=== PATIENT | female | born 1990 | race Two or more races ===

== ENCOUNTER 2020-06-18 09:50 | Observation (INO) | payer MEDICAID ==
[~2020-06-18] VITALS: Ht 160 cm; Wt 83.9 kg
[2020-06-28] MEDS ORDERED: PNV1TABL76 PO (16:37)
[2020-06-28] MEDS ORDERED: FERR325T6 PO (16:38)
[2020-06-28] MEDS ORDERED: ONDANSETRON HCL 4MG/2ML INJ IV PRN (16:45)
[2020-06-28] MEDS: DEXT 5%/LACTATED RINGERS 1,000 ML IV SCH ×2 (17:04→18:00)
[2020-06-28 17:48] LABS: CLARITY URINE TURBID (CLEAR); COLOR URINE DARK YELLOW (YELLOW); KETONES URINE 2+ (NEGATIVE); LEUKOCYTE ESTERASE URINE 3+ (NEGATIVE); NITRITE URINE NEGATIVE (NEGATIVE); OCCULT BLOOD URINE 2+ (NEGATIVE); PH URINE 6.5 (4.5-8.0); PROTEIN URINE 1+ (NEGATIVE); SPECIFIC GRAVITY URINE 1.014 (1.005-1.030)
[2020-06-28] MEDS ORDERED: CEFAZOLIN 2,000 MG in DEXT 5% WATER 100 ML IV NR (19:00)
== END 2020-06-28 19:50 | disposition home or self-care (01) ==
LOC: 8 EST LDRP 06-28 15:59
PROVIDERS: ADMIT Obstetrics & Gynecology; ATTEND Obstetrics & Gynecology
DX: O62.9 Abnormality of forces of labor, unspecified (principal); Z3A.38 38 weeks gestation of pregnancy
CPT/HCPCS: 59025; 76805; 76818; 81003; 87086; 96365; 96375; G0378; J0690; J2405; J7060; 96360; 99281

== ENCOUNTER 2020-06-29 06:17 | Inpatient (IN) | payer MEDICAID ==
[~2020-06-29] VITALS: Ht 152.4 cm; Wt 83.9 kg
[~2020-06-29 06:17] MED LIST: FERR325T6 PO; PNV1TABL76 PO
[2020-06-29] MEDS ORDERED: ONDANSETRON HCL 4MG/2ML INJ IM SCH (07:30)
[2020-06-29] MEDS: LACTATED RINGERS 1,000 ML IV SCH ×3 (07:40→16:09)
[2020-06-29 08:19] LABS: BASOPHILS % 0.5 % (0.0-2.0); HEMATOCRIT. 30.6 % (36.0-48.0); HEMOGLOBIN. 9.5 g/dL (12.0-16.0); LYMPHOCYTES % 10.2 % (20.0-50.0); MEAN CORPUSCULAR HEMOGLOBIN 21.7 pg (28.0-32.0); MEAN CORPUSCULAR VOLUME 69.8 fL (81.0-99.0); MEAN PLATELET VOLUME 8.6 fl (7.4-10.4); MONOCYTES % 7.3 % (2.0-8.0); PLATELET 344 x1000/uL (130-400); RED BLOOD CELL COUNT 4.38 mill/uL (4.2-5.4); RED CELL DISTRIBUTION WIDTH 19.6 % (11.6-14.6)
[2020-06-29 08:27] LABS: CHLORIDE 107 mEq/L (98-107)
[2020-06-29] MEDS ORDERED: LIDOCAINE HCL 1% 20ML VIAL (Pyxis) INJ INFIL PRN (09:15)
[2020-06-29] MEDS ORDERED: DEXT 5%/LR + PITOCIN 20UNITS/L 1,000 ML IV PRN (09:15)
[2020-06-29] MEDS ORDERED: NALOXONE HCL 0.4 MG/ML 1ML VIAL IM PRN (09:15)
[2020-06-29] MEDS ORDERED: METHYLERGONOVINE MALEATE 0.2 MG/ML IM PRN (09:15)
[2020-06-29] MEDS ORDERED: MISOPROSTOL 100MCG TABLET VG PRN (09:15)
[2020-06-29] MEDS ORDERED: CARBOPROST TROMETHAMINE 250 MCG/ML AMPUL IM PRN (09:15)
[2020-06-29] MEDS ORDERED: BUTORPHANOL TARTRATE 2 MG/ML VIAL IV PRN (09:15)
[2020-06-29] MEDS ORDERED: AMPICILLIN 2,000 MG in SODIUM CHLORIDE 0.9% 100 ML IV SCH (09:30)
[2020-06-29] MEDS ORDERED: DIPHENHYDRAMINE 50MG/ML VIAL IM PRN (09:45)
[2020-06-29] MEDS ORDERED: ROPIVACAINE HCL/PF EPIDURAL 200 ML EPI SCH (09:45)
[2020-06-29 10:02] LABS: INR 0.9; PARTIAL THROMBOPLASTIN TIME 28.7 sec (23.4-31.0); PROTHROMBIN TIME 9.8 sec (9.6-11.0)
[2020-06-29 10:15] LABS: OPIATES URINE SCREEN NEGATIVE (NEGATIVE)
[2020-06-29 10:16] LABS: *AMPHETAMINES SCREEN URINE NEGATIVE (NEGATIVE); *BARBITURATES SCREEN URINE NEGATIVE (NEGATIVE); *BENZODIAZEPINES SCREEN URINE NEGATIVE (NEGATIVE); *COCAINE SCREEN URINE NEGATIVE (NEGATIVE); CANNABINOID URINE SCREEN NEGATIVE (NEGATIVE); CLARITY URINE CLOUDY (CLEAR); COLOR URINE DARK YELLOW (YELLOW); KETONES URINE 2+ (NEGATIVE); LEUKOCYTE ESTERASE URINE 3+ (NEGATIVE); METHADONE URINE SCREEN NEGATIVE (NEGATIVE); NITRITE URINE NEGATIVE (NEGATIVE); OCCULT BLOOD URINE 2+ (NEGATIVE); PH URINE 6.5 (4.5-8.0); PHENCYCLIDINE URINE SCREEN NEGATIVE (NEGATIVE); PROTEIN URINE TRACE (NEGATIVE); SPECIFIC GRAVITY URINE 1.014 (1.005-1.030)
[2020-06-29] MEDS: MISOPROSTOL 100MCG TABLET VG PRN ×2 (11:00→17:17)
[2020-06-29 12:29] LABS: PLATELET ESTIMATE NORMAL
[2020-06-29 13:01] LABS: HEPATITIS B SURFACE ANTIGEN NEGATIVE
[2020-06-29 13:36] LABS: HEPATITIS B SURFACE ANTIGEN NEGATIVE
[2020-06-29 14:05] LABS: HEPATITIS A AB IGM NEGATIVE (NEGATIVE)
[2020-06-29] MEDS: AMPICILLIN 1,000 MG in SODIUM CHLORIDE 0.9% 50 ML IV SCH ×2 (17:17→23:20)
[2020-06-29] MEDS ORDERED: MAGNESIUM 4 G PREMIX 100 ML IV STA (17:28)
[2020-06-29] MEDS: MAGNESIUM 20 G PREMIX (L & D) 500 ML IV SCH (18:10)
[2020-06-29] MEDS: DEXT 5%/LACTATED RINGERS 1,000 ML IV SCH ×2 (18:26→22:47)
[2020-06-30] MEDS: DEXT 5%/LR + PITOCIN 20UNITS/L 1,000 ML IV SCH ×2 (00:18→08:04)
[2020-06-30] MEDS: LABETALOL HCL 200MG TABLET PO SCH ×2 (00:30→12:28)
[2020-06-30] MEDS: ONDANSETRON HCL 4MG/2ML INJ IV PRN ×3 (00:31→11:37)
[2020-06-30] MEDS ORDERED: ROPIVACAINE HCL/PF EPIDURAL 200 ML EPI ONE (01:09)
[2020-06-30] MEDS ORDERED: ROPIVACAINE HCL/PF EPIDURAL 200 ML EPI SCH (01:15)
[2020-06-30] MEDS ORDERED: BUPIVACAINE HCL/PF 0.25% (2.5MG/ML) 10ML ONE (02:51)
[2020-06-30] MEDS: AMPICILLIN 1,000 MG in SODIUM CHLORIDE 0.9% 50 ML IV SCH (05:21)
[2020-06-30] MEDS: LACTATED RINGERS 1,000 ML IV SCH (05:21)
[2020-06-30] MEDS ORDERED: CITRIC ACID/SODIUM CITRATE SOLN 30ML UDC PO STA (05:37)
[2020-06-30] MEDS ORDERED: CITRIC ACID/SODIUM CITRATE SOLN 30ML UDC PO SCH (06:45)
[2020-06-30] MEDS ORDERED: SODIUM BICARBONATE 8.4% MEQ/ML 50ML VIAL IV ONE (06:52)
[2020-06-30] MEDS ORDERED: FENTANYL CITRATE/PF 50MCG/ML 2ML VIAL ONE (06:58)
[2020-06-30] MEDS ORDERED: ONDANSETRON HCL 4MG/2ML INJ ONE (07:07)
[2020-06-30] MEDS ORDERED: OXYTOCIN 10 UNITS/ML 1ML ONE ×2 (07:11→07:21)
[2020-06-30] MEDS ORDERED: CEFAZOLIN SODIUM 1000MG/VIAL ONE (07:11)
[2020-06-30] MEDS ORDERED: MIDAZOLAM HCL 2 MG/2 ML VIAL ONE (07:18)
[2020-06-30] MEDS: MAGNESIUM 20 G PREMIX (L & D) 500 ML IV SCH ×2 (08:06→15:14)
[2020-06-30] MEDS ORDERED: DEXT 5%/LR + PITOCIN 20UNITS/L 1,000 ML IV SCH (08:06)
[2020-06-30] MEDS ORDERED: KETOROLAC 30MG/ML VIAL IV PRN (08:15)
[2020-06-30] MEDS ORDERED: RHO(D) IMMUNE GLOBULIN 300 MCG/SYR IM PRN (08:15)
[2020-06-30] MEDS ORDERED: BISACODYL 10MG SUPP PR PRN (08:15)
[2020-06-30] MEDS ORDERED: IBUPROFEN 400MG TABLET PO PRN (08:15)
[2020-06-30] MEDS ORDERED: MEPERIDINE HCL/PF 25MG/ML CPJ IV PRN (08:30)
[2020-06-30] MEDS ORDERED: DIPHENHYDRAMINE 50MG/ML VIAL IV PRN (08:30)
[2020-06-30] MEDS ORDERED: HYDROMORPHONE HCL/PF 2MG/ML CPJ IV PRN (08:30)
[2020-06-30] MEDS ORDERED: MORPHINE SULFATE 2 MG/ML CPJ (NOT FOR IM USE) IV PRN (08:30)
[2020-06-30] MEDS ORDERED: FENTANYL CITRATE/PF 50MCG/ML 2ML VIAL IV PRN (08:30)
[2020-06-30] MEDS ORDERED: METOCLOPRAMIDE HCL 10MG/2ML VIAL IV NR (08:30)
[2020-06-30] MEDS ORDERED: LIDOCAINE HCL 2%/EPINEPHRINE 1:100,000 20 ML VIAL INFIL ONE (10:12)
[2020-06-30] MEDS ORDERED: CARBOPROST TROMETHAMINE 250 MCG/ML AMPUL IM ONE (10:13)
[2020-06-30 10:35] VITALS: BP 153/110
[2020-06-30 10:50] VITALS: BP 160/107
[2020-06-30 11:49] LABS: CHLORIDE 107 mEq/L (98-107)
[2020-06-30 12:02] LABS: HEMATOCRIT. 25.1 % (36.0-48.0); HEMOGLOBIN. 7.7 g/dL (12.0-16.0); MEAN CORPUSCULAR HEMOGLOBIN 21.4 pg (28.0-32.0); MEAN CORPUSCULAR VOLUME 69.3 fL (81.0-99.0); MEAN PLATELET VOLUME 8.2 fl (7.4-10.4); PLATELET 279 x1000/uL (130-400); RED BLOOD CELL COUNT 3.63 mill/uL (4.2-5.4); RED CELL DISTRIBUTION WIDTH 19.5 % (11.6-14.6)
[2020-06-30 12:14] LABS: D-DIMER 15.03 mg/L FEU (<0.50); INR 0.9; PARTIAL THROMBOPLASTIN TIME 31.5 sec (23.4-31.0); PROTHROMBIN TIME 9.3 sec (9.6-11.0)
[2020-06-30 13:30] VITALS: BP 142/96
[2020-06-30 15:06] LABS: PLATELET ESTIMATE NORMAL
[2020-06-30 17:30] VITALS: BP 122/85
[2020-06-30 20:00] VITALS: BP 122/68
[2020-06-30] MEDS: IBUPROFEN 800MG TABLET PO PRN (20:19)
[2020-06-30] MEDS ORDERED: LACTATED RINGERS 1,000 ML IV SCH (22:30)
[2020-07-01] VITALS: BP 127/74
[2020-07-01] MEDS: LABETALOL HCL 200MG TABLET PO SCH ×2 (00:41→21:16)
[2020-07-01] MEDS: IBUPROFEN 800MG TABLET PO PRN ×3 (02:19→17:18)
[2020-07-01 04:00] VITALS: BP 112/75
[2020-07-01 06:44] LABS: BASOPHILS % 0.3 % (0.0-2.0); EOSINOPHILS % 0.2 % (0.0-5.0); HEMATOCRIT. 22.4 % (36.0-48.0); LYMPHOCYTES % 10.3 % (20.0-50.0); MEAN CORPUSCULAR HEMOGLOBIN 21.9 pg (28.0-32.0); MEAN CORPUSCULAR VOLUME 69.9 fL (81.0-99.0); MEAN PLATELET VOLUME 8.2 fl (7.4-10.4); MONOCYTES % 8.3 % (2.0-8.0); NEUTROPHILS % 80.9 % (40.0-76.0); PLATELET 251 x1000/uL (130-400); RED CELL DISTRIBUTION WIDTH 19.8 % (11.6-14.6)
[2020-07-01 08:00] VITALS: BP 107/70
[2020-07-01] MEDS: FERROUS SULFATE 325MG TABLET PO SCH (08:51)
[2020-07-01 17:47] VITALS: BP 96/55
[2020-07-01 20:45] VITALS: BP 126/86
[2020-07-02 01:30] VITALS: BP 114/75
[2020-07-02 04:00] VITALS: BP 103/72
[2020-07-02] MEDS: IBUPROFEN 800MG TABLET PO PRN ×2 (05:36→15:43)
[2020-07-02 07:30] VITALS: BP 110/58
[2020-07-02] MEDS ORDERED: METRONIDAZOLE 500MG TABLET PO NR (08:30)
[2020-07-02] MEDS: FERROUS SULFATE 325MG TABLET PO SCH ×2 (08:36→15:43)
[2020-07-02 10:38] LABS: CHLORIDE 104 mEq/L (98-107)
[2020-07-02 15:02] VITALS: BP 117/74
[2020-07-02 20:00] VITALS: BP 121/73
[2020-07-02] MEDS: LABETALOL HCL 200MG TABLET PO SCH (21:21)
[2020-07-03] MEDS ORDERED: IBUP-2030 PO (01:57)
[2020-07-03] MEDS: IBUPROFEN 800MG TABLET PO PRN (02:08)
[2020-07-03 05:10] VITALS: BP 120/84
[2020-07-03 08:00] VITALS: BP 118/88
[2020-07-03] MEDS: FERROUS SULFATE 325MG TABLET PO SCH (08:44)
[2020-07-03] MEDS: LABETALOL HCL 200MG TABLET PO SCH (08:45)
== END 2020-07-03 11:13 | disposition home or self-care (01) | DRG 540 ==
LOC: OBSVTOIN 06:17 → 8 EST LDRP 06:17 → 8EST 06-30 10:10
PROVIDERS: ADMIT Obstetrics & Gynecology; ATTEND Obstetrics & Gynecology
PROC: 10D00Z1 Extraction of Products of Conception, Low, Open Approach (ICD-10-PCS; principal; 2020-06-30)
DX: O77.0 Labor and delivery complicated by meconium in amniotic fluid (principal); O11.4 Pre-existing hypertension with pre-eclampsia, complicating childbirth; O99.02 Anemia complicating childbirth; O99.12 Other diseases of the blood and blood-forming organs and certain disorders involving the immune mechanism complicating childbirth; O75.89 Other specified complications of labor and delivery; O10.92 Unspecified pre-existing hypertension complicating childbirth; O48.0 Post-term pregnancy; D72.829 Elevated white blood cell count, unspecified; D62 Acute posthemorrhagic anemia; A59.9 Trichomoniasis, unspecified; Z3A.39 39 weeks gestation of pregnancy; Z37.0 Single live birth; Z83.3 Family history of diabetes mellitus; Z82.49 Family history of ischemic heart disease and other diseases of the circulatory system
CPT/HCPCS: 36415; 76705; 80053; 80305; 81003; 82140; 82947; 82962; 83735; 84550; 85025; 85379; 85384; 86592; 86703; 86705; 86709; 86762; 86803; 86850; 86900; 86920; 87340; 88307; 99281; J0290; J0595; J0690; J2250; J2405; J2590; J2795; J3010; J3475; J3490; J7050; J7120